=== PATIENT | male | born 2000 | race Two or more races ===

== ENCOUNTER 2025-02-08 22:02 | Emergency (ER) | payer OTHER, SELFPAY ==
[2025-02-08 22:03] VITALS: BP 126/80; PULSE 80; RESP 18; TEMP 37; O2SAT 98; BMI 27.6
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
== END 2025-02-09 01:24 | disposition home or self-care (01) ==
PROVIDERS: Emergency Provider Emergency Medicine
DX: S73.102A Unspecified sprain of left hip, initial encounter (principal); S83.92XA Sprain of unspecified site of left knee, initial encounter; S93.402A Sprain of unspecified ligament of left ankle, initial encounter; S09.90XA Unspecified injury of head, initial encounter; J20.9 Acute bronchitis, unspecified; V89.9XXA Person injured in unspecified vehicle accident, initial encounter
CPT/HCPCS: 70450; 73502; 73562; 73600; 99282